=== PATIENT | female | born 1995 | race Two or more races ===

== ENCOUNTER 2018-12-23 08:48 | Inpatient (IN) | payer OTHER ==
[~2018-12-23] VITALS: Ht 160 cm; Wt 94.8 kg
[2019-01-20] MEDS ORDERED: OBSTETRIX EC C1 EACH PO (09:06)
== END 2019-01-21 11:21 | disposition home or self-care (01) | DRG 807 ==
LOC: OB/GYN 12-30 14:30 → LDR 01-19 03:21 → OB/GYN 01-19 03:21
PROVIDERS: ADMIT Obstetrics & Gynecology
PROC: 10E0XZZ Delivery of Products of Conception, External Approach (ICD-10-PCS; principal; 2019-01-19)
PROC: 0KQM0ZZ Repair Perineum Muscle, Open Approach (ICD-10-PCS; 2019-01-19)
PROC: 3E033VJ Introduction of Other Hormone into Peripheral Vein, Percutaneous Approach (ICD-10-PCS; 2019-01-19)
PROC: 10907ZC Drainage of Amniotic Fluid, Therapeutic from Products of Conception, Via Natural or Artificial Opening (ICD-10-PCS; 2019-01-19)
PROC: 4A1HXCZ Monitoring of Products of Conception, Cardiac Rate, External Approach (ICD-10-PCS; 2019-01-19)
DX: O70.1 Second degree perineal laceration during delivery (principal); Z37.0 Single live birth; Z3A.39 39 weeks gestation of pregnancy; Z22.330 Carrier of Group B streptococcus

== ENCOUNTER → 2020-03-19 06:00 | Outpatient (CLI) | payer OTHER ==
[~2020-03-19 06:00] MED LIST: OBSTETRIX EC C1 EACH PO
== END | disposition home or self-care (01) ==
LOC: LAB 06:00 → ADM 03-23 10:15 → EDSTATUS 03-23 10:15
PROVIDERS: ATTEND Obstetrics & Gynecology
DX: U07.1 COVID-19 (principal)

== ENCOUNTER 2020-04-07 22:34 | Day surgery (SDC) | payer OTHER ==
[~2020-04-07] VITALS: Ht 160 cm; Wt 83.9 kg
== END 2020-04-08 | disposition home or self-care (01) ==
LOC: ER 22:34 → CIR.AMB 04-08 13:57
PROVIDERS: ATTEND Obstetrics & Gynecology
DX: O03.4 Incomplete spontaneous abortion without complication (principal); Z20.828 Contact with and (suspected) exposure to other viral communicable diseases